=== PATIENT | male | born 1975 | race Caucasian/White ===

== ENCOUNTER 2016-08-01 14:56 | Outpatient (CLI) | payer OTHER ==
[~2016-08-01] VITALS: Ht 170.2 cm; Wt 88.6 kg
[2016-08-01 15:09] VITALS: BP 122/69; PULSE 70; RESP 18; Ht 170.2 cm; Wt 88.6 kg
[2016-08-01] MEDS ORDERED: QUET25TA26 PO (15:23)
--- NOTE | 2016-08-01 16:11 | CONS ---
[facility] INITIAL OUTPATIENT CONSULTATION NOTE DATE OF CONSULTATION: 08/01/2016 PLACE OF SERVICE: [facility] IMPRESSION AND PLAN: A very pleasant 40-year-old gentleman with lipoma of the left shoulder as well as likely lipoma of the left upper forehead. Both of these areas appear to be benign lipomas and I do not see any worrisome features to warrant recommendation for absolute need for surgical resection. I also do not believe that there is currently indication for further imaging studies unless these areas appear to change or become symptomatic. The patient also has a number of other comorbidities which include schizophrenia, alcohol abuse, drug abuse as well as anxiety. Currently, I do not see any major benefit to the patient and I tried reassuring him and his father, both of whom appeared to understand, had all their questions answered and appeared to be comfortable with the following plans. With the above assessment, I recommend the followin. Symptomatic following all these 2 areas of lipomas. 2. If there are any changes or any other new concerns arise, or the patient simply wishes, for the patient to please call us back and we would be happy to see him again and reconsider surgical excision of these areas. Thank you again for allowing us to participate in the care of this very pleasant gentleman and his wonderful family. If there are any questions, please feel free to contact me at [phone]. UPDATED CLINICAL SUMMARY: The patient is a very pleasant 40-year-old gentleman with a few comorbidities including previous left orbital fracture due to trauma , status post repair at [facility], as well as alcohol abuse and history of schizophrenia and anxiety, who noted a mass in the right posterior shoulder for over a year that has been stable as well as a small raised area on the left upper forehead region without any changes. COMORBIDITIES: 1. Status post trauma to the left orbital region, status post reported surgery at [facility]. 2. Mass in the left forehead area since the operation at [facility] that has not changed. 3. Mass in the left shoulder without globe changer the last year. 4. Schizophrenia. 5. Alcohol abuse. 6. Anxiety. 7. Marijuana use. 8. Difficulty with memory. 9. History of methamphetamine abuse. 10. Obesity. HISTORY OF PRESENT ILLNESS: The patient is a very pleasant 40-year-old gentleman with the above-mentioned comorbidities, whom we were kindly asked to consult regarding management of his right shoulder lipoma. He reports noting this area about a year ago or more, and there are no changes in the size. There is no pain associated with this region and no other complaints. He also has the above-mentioned left forehead lipoma raised area without any change as well. No other major complaints. ALLERGIES: NO KNOWN DRUG ALLERGIES. MEDICATIONS: Seroquel. SOCIAL HISTORY: The patient lives with his family and reports alcohol intake on a regular basis. No reported smoking and above-mentioned exposure to methamphetamines as well as marijuana. FAMILY HISTORY: There is history of diabetes in the family and no other mention of major medical, surgical or oncologic problems. REVIEW OF SYSTEMS: Other than the above-mentioned, there are no other pertinent positives or pertinent negatives in a complete 14-point review of systems. PHYSICAL EXAMINATION: GENERAL: The patient appears to be a very pleasant gentleman of descent, appearing stated age, sitting in a chair comfortably and in no acute distress. His BMI is 30.6. VITAL SIGNS: Temperature 98.1, blood pressure 122/69, pulse 70, respiratory rate 18, pulse oximetry 93% on room air. HEENT: Normocephalic and atraumatic. Extraocular muscles and hearing are grossly intact bilaterally and symmetrically. Sclerae are nonicteric. Oral cavity is clear; oral mucosa appeared to be pink and moist. Dentition: fair. There is a 2.5 cm round area of raised skin on the left forehead region that is soft to palpation and nontender. The skin overlying this area appears to be pink and the overall appearance of the area appears to be a lipoma. His shoulder on the right contains a 5 to 6 cm area of raised skin, reminiscent of a lipoma superior to the scapula on the right. This area again is soft and nontender and the skin overlying it appears to be pink and feels warm to touch. NECK: Supple. There is no lymphadenopathy or JVD. There is no submental, submandibular or supraclavicular lymphadenopathy. CHEST: Rises symmetrically with each breath; patient is breathing comfortably. There are no audible wheezes, rales or rhonchi on the gross exam. HEART: Pulse is regular and palpable on the right wrist. Capillary refill was normal. Carotid pulses are palpable bilaterally and symmetrically in the neck. EXTREMITIES: Lower extremities contain no pitting edema around the ankles bilaterally and symmetrically. ABDOMEN: Abdomen is soft, nontender and nondistended. There are no peritoneal signs or guarding. No evidence of ascites, organomegaly, caput medusae, engorged subcutaneous veins, or other abnormalities. SKIN: Appears to be pink and feels warm to touch. NEUROLOGIC: Awake, alert, and follows commands appropriately. LABORATORY DATA: None for this visit. RADIOLOGY: None for this visit. Dictated By: CHRISTI DIAZ/DONNA Conf#: [id number] DID#: [id number] CC: KEVIN WARNER MD;*EndCC* MTDD
== END 2016-08-01 16:46 | disposition home or self-care (01) ==
LOC: HPC 14:56
PROVIDERS: ATTEND Transplant Surgery
DX: D17.0 Benign lipomatous neoplasm of skin and subcutaneous tissue of head, face and neck (principal); F20.9 Schizophrenia, unspecified; F12.10 Cannabis abuse, uncomplicated; F10.10 Alcohol abuse, uncomplicated; E66.9 Obesity, unspecified
CPT/HCPCS: G0463